=== PATIENT | female | born 1990 | race Caucasian/White ===

== ENCOUNTER 2017-07-12 14:43 | Emergency (ER) | payer OTHER ==
[~2017-07-12] VITALS: Ht 165.1 cm; Wt 72.0 kg
[2017-07-12 14:46] VITALS: BP 146/87
[2017-07-12] MEDS ORDERED: HYDROmorphone 1 MG/ML, 1ML ONE (15:29)
[2017-07-12] MEDS ORDERED: SODIUM CHLORIDE FLUSH 10ML SYR IVF ONE (15:30)
[2017-07-12] MEDS ORDERED: HYDROmorphone 2 MG/ML, 1ML IVPush ONE (15:30)
[2017-07-12] MEDS ORDERED: AMPICILLIN/SULBACTAM 3 GM in SODIUM CHLORIDE 0.9% 100 ML IV ONE (15:30)
[2017-07-12] MEDS ORDERED: ONDANSETRON 2MG/ML, 2ML ONE (15:34)
[2017-07-12] MEDS ORDERED: ONDANSETRON 2MG/ML, 2ML IVPush ONE (16:00)
== END 2017-07-12 17:12 | disposition home or self-care (01) ==
LOC: ED 17:05
DX: S21.151A Open bite of right front wall of thorax without penetration into thoracic cavity, initial encounter (principal); S51.851A Open bite of right forearm, initial encounter; S71.152A Open bite, left thigh, initial encounter; J45.909 Unspecified asthma, uncomplicated; W54.0XXA Bitten by dog, initial encounter; Y93.K1 Activity, walking an animal; Y99.8 Other external cause status; Y92.410 Unspecified street and highway as the place of occurrence of the external cause
CPT/HCPCS: 73090; 96365; 96375; 99284; J0295; J1170; J2405

== ENCOUNTER → 2020-06-11 | Outpatient (CLI) | payer OTHER ==
[~2020-06-11] VITALS: Ht 160 cm; Wt 102.3 kg
[2020-06-11 13:47] VITALS: BP 138/82
[2020-06-11 15:20] LABS: BASOPHILS % (AUTO) 1 % (0-1); EOSINOPHILS % (AUTO) 1 % (1-7); LYMPHOCYTES % (AUTO) 25 % (22-44); MD NO; MEAN CORPUSCULAR HEMOGLOBIN 31.3 pg (27.0-34.8); MEAN CORPUSCULAR HGB CONC 34.3 g/dL (32.4-35.8); MEAN PLATELET VOLUME 7.5 fL (7.4-10.4); MONOCYTES % (AUTO) 7 % (2-9); NEUTROPHILS % (AUTO) 67 % (42-75); PLATELET COUNT 257 x10^3/uL (130-400); RED BLOOD COUNT 4.03 x10^6/uL (3.82-5.3); RED CELL DISTRIBUTION WIDTH 13.7 % (9.6-15.2)
[2020-06-11 15:21] LABS: MICROSCOPIC INDICATED
[2020-06-11 15:25] LABS: ALANINE AMINOTRANSFERASE 14 U/L (12-78); ALBUMIN 2.5 g/dL (3.4-5.0); ANION GAP 8 mmol/L (5-15); CALCIUM 8.3 mg/dL (8.5-10.1); CHLORIDE 108 mmol/L (98-107); CREATININE 0.59 mg/dL (0.55-1.02)
[2020-06-11 15:28] LABS: ALKALINE PHOSPHATASE 102 U/L (45-117); BILIRUBIN,TOTAL 0.2 mg/dL (0.2-1.0); TOTAL PROTEIN 6.5 g/dL (6.4-8.2)
[2020-06-11 15:53] LABS: CREATININE,URINE RANDOM < 13.00 mg/dL; TOTAL PROTEIN,URINE RANDOM < 5 mg/dL (0-12)
== END | disposition home or self-care (01) ==
LOC: LDOP 13:58
PROVIDERS: ATTEND Obstetrics & Gynecology
DX: O26.893 Other specified pregnancy related conditions, third trimester (principal); R51.9 Headache, unspecified; R60.9 Edema, unspecified; Z3A.36 36 weeks gestation of pregnancy
CPT/HCPCS: 36415; 59025; 80053; 81001; 82570; 84156; 84550; 85025; 87086

== ENCOUNTER 2020-06-24 16:18 | Inpatient (IN) | payer OTHER ==
[~2020-06-24] VITALS: Ht 160 cm; Wt 103.2 kg
[2020-06-24 16:57] LABS: BASOPHILS % (AUTO) 1 % (0-1); EOSINOPHILS % (AUTO) 1 % (1-7); LYMPHOCYTES % (AUTO) 24 % (22-44); MEAN CORPUSCULAR HEMOGLOBIN 30.5 pg (27.0-34.8); MEAN CORPUSCULAR HGB CONC 33.7 g/dL (32.4-35.8); MEAN PLATELET VOLUME 7.8 fL (7.4-10.4); MONOCYTES % (AUTO) 7 % (2-9); NEUTROPHILS % (AUTO) 67 % (42-75); PLATELET COUNT 246 x10^3/uL (130-400); RED BLOOD COUNT 4.29 x10^6/uL (3.82-5.3)
[2020-06-24 17:01] LABS: MD NO
[2020-06-24 17:06] LABS: ALANINE AMINOTRANSFERASE 14 U/L (12-78); ALBUMIN 2.5 g/dL (3.4-5.0); ANION GAP 8 mmol/L (5-15); CALCIUM 8.2 mg/dL (8.5-10.1); CHLORIDE 107 mmol/L (98-107)
[2020-06-24 17:08] LABS: BILIRUBIN, DIRECT < 0.1 mg/dL (0.1-0.2)
[2020-06-24 17:09] LABS: ALKALINE PHOSPHATASE 125 U/L (45-117); BILIRUBIN,TOTAL 0.2 mg/dL (0.2-1.0); CREATININE 0.67 mg/dL (0.55-1.02); TOTAL PROTEIN 6.7 g/dL (6.4-8.2)
[2020-06-24 17:15] LABS: MICROSCOPIC INDICATED
[2020-06-24] MEDS: LACTATED RINGERS 1,000 ML IV SCH (17:33)
[2020-06-24] MEDS ORDERED: MISOPROSTOL 25 MCG TABLET ONE ×2 (17:48→22:09)
[2020-06-24] MEDS ORDERED: FENTANYL PF 100 MCG/2ML IV PRN (18:00)
[2020-06-24] MEDS ORDERED: CALCIUM CARBONATE 500 MG TAB.CHEW PO PRN (18:00)
[2020-06-24] MEDS ORDERED: D5%-LACTATED RINGERS 1,000 ML IV SCH (18:00)
[2020-06-24] MEDS ORDERED: TERBUTALINE 1 MG/ML, 1ML SQ PRN (18:00)
[2020-06-24] MEDS ORDERED: OXYTOCIN 30U/ 0.9% NaCL 500ML 500 ML IV ONE (18:00)
[2020-06-24] MEDS ORDERED: TERBUTALINE 1 MG/ML, 1ML IVPush PRN (18:00)
[2020-06-24] MEDS: MISOPROSTOL 25 MCG TABLET VG PRN ×2 (18:02→23:27)
[2020-06-24] MEDS ORDERED: OXYTOCIN 30U/ 0.9% NaCL 500ML 500 ML ONE (18:20)
[2020-06-24] MEDS ORDERED: NEWBORN KIT ONE (18:20)
[2020-06-25] MEDS ORDERED: ALBUTEROL HFA 90 MCG/SPRAY INH PRN
[2020-06-25] MEDS ORDERED: MISOPROSTOL 25 MCG TABLET ONE ×2 (03:31→22:45)
[2020-06-25] MEDS: LACTATED RINGERS 1,000 ML IV SCH (07:02)
[2020-06-25] MEDS ORDERED: ACETAMINOPHEN 325 MG TABLET ONE (08:50)
[2020-06-25] MEDS ORDERED: ONDANSETRON 2MG/ML, 2ML ONE (09:38)
[2020-06-25] MEDS ORDERED: FENTANYL PF 100 MCG/2ML ONE ×4 (09:38→22:29)
[2020-06-25] MEDS: ONDANSETRON 2MG/ML, 2ML IVPush PRN (09:41)
[2020-06-25] MEDS: FENTANYL PF 100 MCG/2ML IVPush PRN ×4 (09:42→22:36)
[2020-06-25] MEDS ORDERED: OXYTOCIN 30U/ 0.9% NaCL 500ML 500 ML ONE (20:31)
[2020-06-25] MEDS ORDERED: OXYTOCIN 30U/ 0.9% NaCL 500ML 500 ML IV PRN (21:00)
[2020-06-25] MEDS: MISOPROSTOL 25 MCG TABLET VG PRN (22:57)
[2020-06-26] MEDS ORDERED: FENTANYL PF 100 MCG/2ML ONE ×3 (03:00→07:43)
[2020-06-26] MEDS: FENTANYL PF 100 MCG/2ML IVPush PRN ×3 (03:04→07:45)
[2020-06-26] MEDS: LACTATED RINGERS 1,000 ML IV SCH ×2 (08:33→11:13)
[2020-06-26] MEDS ORDERED: FENTANYL/BUPIV./NS/PF 250 ML EPIDCONT ONE (09:07)
[2020-06-26] MEDS ORDERED: EPHEDRINE 50 MG/ML, 1ML IVPush PRN (13:00)
[2020-06-26] MEDS ORDERED: LACTATED RINGERS 1,000 ML IVBOLUS PRN (13:00)
[2020-06-26] MEDS ORDERED: NALOXONE 0.4 MG/ML, 1ML IVPush PRN (13:00)
[2020-06-26] MEDS ORDERED: DIPHENHYDRAMINE 50 MG/ML, 1ML IVPush PRN (13:00)
[2020-06-26] MEDS ORDERED: ONDANSETRON 2MG/ML, 2ML IVPush PRN (13:00)
[2020-06-26] MEDS ORDERED: LACTATED RINGERS 1,000 ML IV SCH (13:00)
[2020-06-26] MEDS ORDERED: FENTANYL/BUPIV./NS/PF 250 ML EPIDCONT SCH (13:00)
[2020-06-26] MEDS ORDERED: PREN1TAB60 PO (14:28)
[2020-06-26] MEDS ORDERED: ONDANSETRON 2MG/ML, 2ML ONE (15:53)
[2020-06-26] MEDS: ONDANSETRON 2MG/ML, 2ML IVPush PRN (15:55)
[2020-06-26] MEDS ORDERED: DIPHENHYDRAMINE 50 MG/ML, 1ML IVPush ONE (19:00)
[2020-06-26] MEDS ORDERED: DIPHENHYDRAMINE 50 MG/ML, 1ML ONE (19:11)
[2020-06-26 20:30] VITALS: BP 134/81
[2020-06-26] MEDS ORDERED: SODIUM CITRATE/CITRIC ACID 30 ML UDC PO ONE (23:00)
[2020-06-26] MEDS ORDERED: METOCLOPRAMIDE 5 MG/ML, 2ML IV ONE (23:00)
[2020-06-26] MEDS ORDERED: AZITHROMYCIN 500 MG in SODIUM CHLORIDE 0.9% 250 ML IV ONE (23:00)
[2020-06-26] MEDS ORDERED: SODIUM CITRATE/CITRIC ACID 15 ML UDC ONE (23:01)
[2020-06-26] MEDS ORDERED: METOCLOPRAMIDE 5 MG/ML, 2ML ONE (23:02)
[2020-06-27] MEDS ORDERED: FENTANYL PF 100 MCG/2ML ONE (00:15)
[2020-06-27] MEDS ORDERED: CEFAZOLIN 1,000 MG ONE (00:17)
[2020-06-27] MEDS ORDERED: OXYTOCIN 10 UNITS/ML, 1ML ONE ×3 (00:17)
[2020-06-27] MEDS ORDERED: KETOROLAC 30 MG/1 ML ONE (00:17)
[2020-06-27] MEDS ORDERED: LIDOCAINE/MPF 2%-EPI 1:200K, 20 ML ONE (00:17)
[2020-06-27] MEDS ORDERED: METOCLOPRAMIDE 5 MG/ML, 2ML IV PRN (00:30)
[2020-06-27] MEDS ORDERED: MISOPROSTOL 200 MCG TABLET PR PRN (00:30)
[2020-06-27] MEDS: LACTATED RINGERS 1,000 ML IV SCH ×6 (00:30→20:30)
[2020-06-27] MEDS ORDERED: KETOROLAC 30 MG/1 ML IV SCH (00:30)
[2020-06-27] MEDS ORDERED: GLYCERIN ADULT SUPP PR PRN (00:30)
[2020-06-27] MEDS ORDERED: METHYLERGONOVINE 0.2 MG/ML IM PRN (00:30)
[2020-06-27] MEDS ORDERED: BISACODYL 10 MG SUPP PR PRN (00:30)
[2020-06-27] MEDS: OXYTOCIN 30U/ 0.9% NaCL 500ML 500 ML IV SCH ×3 (00:30→20:30)
[2020-06-27] MEDS ORDERED: MEASLES,MUMPS&RUBELLA VACC/PF 0.5 ML SQ-VACC PRN (00:30)
[2020-06-27] MEDS ORDERED: ONDANSETRON 2MG/ML, 2ML IV PRN (00:30)
[2020-06-27] MEDS ORDERED: ACETAMINOPHEN 325 MG TABLET PO PRN ×2 (00:30)
[2020-06-27] MEDS ORDERED: CARBOPROST TROMETHAMINE 250 MCG/ML, 1ML IM PRN (00:30)
[2020-06-27] MEDS ORDERED: CALCIUM CARBONATE 500 MG TAB.CHEW PO PRN (00:30)
[2020-06-27] MEDS ORDERED: ONDANSETRON 2MG/ML, 2ML ONE (00:50)
[2020-06-27] MEDS ORDERED: METOCLOPRAMIDE 5 MG/ML, 2ML IVPush PRN (02:00)
[2020-06-27] MEDS ORDERED: ONDANSETRON 2MG/ML, 2ML IVPush PRN (02:00)
[2020-06-27] MEDS ORDERED: morphine SULFATE 10 MG/ML, 1ML IVPush PRN (02:00)
[2020-06-27] MEDS ORDERED: MEPERIDINE/PF 25MG/0.5ML IVPush PRN (02:00)
[2020-06-27] MEDS ORDERED: EPHEDRINE 50 MG/ML, 1ML IVPush PRN (02:00)
[2020-06-27] MEDS ORDERED: OXYcodone 5 MG/5 ML ORAL.SOL UDC PO PRN (02:00)
[2020-06-27] MEDS ORDERED: DIPHENHYDRAMINE 50 MG/ML, 1ML IVPush PRN (02:00)
[2020-06-27] MEDS ORDERED: FENTANYL PF 100 MCG/2ML IV PRN (02:00)
[2020-06-27 03:05] VITALS: BP 119/76
[2020-06-27] MEDS: OXYcodone/APAP 5/325MG TABLET PO PRN ×6 (04:20→21:58)
[2020-06-27 07:15] VITALS: BP 124/81
[2020-06-27] MEDS: DOCUSATE 100 MG CAPSULE PO PRN ×2 (07:19→19:29)
[2020-06-27] MEDS: KETOROLAC 30 MG/1 ML IV SCH ×3 (07:19→19:29)
[2020-06-27] MEDS: PRENATAL VIT/IRON/FA 1 EACH TABLET PO SCH (07:19)
[2020-06-27] MEDS: morphine SULFATE 10 MG/ML, 1ML IVPush PRN ×4 (07:56→22:34)
[2020-06-27 10:35] LABS: BASOPHILS % (AUTO) 0 % (0-1); EOSINOPHILS % (AUTO) 0 % (1-7); LYMPHOCYTES % (AUTO) 12 % (22-44); MEAN CORPUSCULAR HEMOGLOBIN 30.1 pg (27.0-34.8); MEAN CORPUSCULAR HGB CONC 33.1 g/dL (32.4-35.8); MEAN PLATELET VOLUME 8.1 fL (7.4-10.4); MONOCYTES % (AUTO) 5 % (2-9); NEUTROPHILS % (AUTO) 82 % (42-75); PLATELET COUNT 206 x10^3/uL (130-400); RED BLOOD COUNT 3.99 x10^6/uL (3.82-5.3); RED CELL DISTRIBUTION WIDTH 14.1 % (9.6-15.2)
[2020-06-27 10:37] LABS: MD NO
[2020-06-27 12:54] VITALS: BP 127/86
[2020-06-27] MEDS: SIMETHICONE 80 MG CHEW TAB PO PRN ×2 (13:33→19:29)
[2020-06-27 16:19] VITALS: BP 121/84
[2020-06-27 19:43] VITALS: BP 128/83
[2020-06-28] VITALS: BP 122/82
[2020-06-28] MEDS: LACTATED RINGERS 1,000 ML IV SCH ×3 (00:30→08:08)
[2020-06-28] MEDS: KETOROLAC 30 MG/1 ML IV SCH ×4 (02:01→19:31)
[2020-06-28] MEDS: OXYcodone/APAP 5/325MG TABLET PO PRN ×6 (02:13→23:32)
[2020-06-28] MEDS: OXYTOCIN 30U/ 0.9% NaCL 500ML 500 ML IV SCH (07:14)
[2020-06-28] MEDS: DOCUSATE 100 MG CAPSULE PO PRN ×2 (07:25→19:32)
[2020-06-28] MEDS: PRENATAL VIT/IRON/FA 1 EACH TABLET PO SCH (07:25)
[2020-06-28] MEDS: SIMETHICONE 80 MG CHEW TAB PO PRN ×2 (07:26→15:26)
[2020-06-28 07:40] VITALS: BP 137/87
[2020-06-28 12:30] VITALS: BP 122/89
[2020-06-28 19:50] VITALS: BP 134/89
[2020-06-29] VITALS (8 sets, daily range): BP systolic 143–165; BP diastolic 83–116
[2020-06-29] MEDS: KETOROLAC 30 MG/1 ML IV SCH (01:34)
[2020-06-29] MEDS: OXYcodone/APAP 5/325MG TABLET PO PRN ×5 (03:39→20:42)
[2020-06-29] MEDS ORDERED: DOCU100C33 PO (06:24)
[2020-06-29] MEDS ORDERED: IBUP-1222 PO (06:24)
[2020-06-29] MEDS ORDERED: OXYC-302 PO (06:24)
[2020-06-29] MEDS: PRENATAL VIT/IRON/FA 1 EACH TABLET PO SCH (08:05)
[2020-06-29] MEDS: DOCUSATE 100 MG CAPSULE PO PRN ×2 (08:05→20:15)
[2020-06-29] MEDS: IBUPROFEN 600 MG TABLET PO PRN ×3 (08:05→20:15)
[2020-06-29] MEDS ORDERED: LABETALOL 100 MG TABLET ONE (08:23)
[2020-06-29] MEDS: LABETALOL 100 MG TABLET PO SCH ×2 (08:41→17:48)
[2020-06-29 09:32] LABS: BASOPHILS % (AUTO) 1 % (0-1); EOSINOPHILS % (AUTO) 3 % (1-7); LYMPHOCYTES % (AUTO) 19 % (22-44); MEAN CORPUSCULAR HEMOGLOBIN 30.9 pg (27.0-34.8); MEAN CORPUSCULAR HGB CONC 33.7 g/dL (32.4-35.8); MEAN PLATELET VOLUME 7.3 fL (7.4-10.4); MONOCYTES % (AUTO) 7 % (2-9); NEUTROPHILS % (AUTO) 71 % (42-75); PLATELET COUNT 238 x10^3/uL (130-400); RED BLOOD COUNT 3.61 x10^6/uL (3.82-5.3); RED CELL DISTRIBUTION WIDTH 13.8 % (9.6-15.2)
[2020-06-29 09:36] LABS: MD NO
[2020-06-29 09:40] LABS: ALBUMIN 1.9 g/dL (3.4-5.0); ANION GAP 7 mmol/L (5-15); CALCIUM 8.5 mg/dL (8.5-10.1); CHLORIDE 106 mmol/L (98-107)
[2020-06-29 09:45] LABS: ALANINE AMINOTRANSFERASE 13 U/L (12-78); ALKALINE PHOSPHATASE 93 U/L (45-117); BILIRUBIN,TOTAL 0.2 mg/dL (0.2-1.0); CREATININE 0.58 mg/dL (0.55-1.02); TOTAL PROTEIN 5.7 g/dL (6.4-8.2)
[2020-06-29 10:04] LABS: TOTAL PROTEIN,URINE RANDOM < 5 mg/dL (0-12)
[2020-06-29] MEDS: SIMETHICONE 80 MG CHEW TAB PO PRN ×2 (12:26→20:15)
[2020-06-29] MEDS ORDERED: LABETALOL 100 MG TABLET PO ONE (18:30)
[2020-06-30 00:03] VITALS: BP 132/87
[2020-06-30] MEDS: OXYcodone/APAP 5/325MG TABLET PO PRN ×4 (00:49→13:58)
[2020-06-30] MEDS: IBUPROFEN 600 MG TABLET PO PRN ×2 (02:24→08:45)
[2020-06-30 05:20] VITALS: BP 147/98
[2020-06-30] MEDS ORDERED: LABETALOL 200 MG TABLET PO SCH (08:00)
[2020-06-30] MEDS: DOCUSATE 100 MG CAPSULE PO PRN (08:45)
[2020-06-30] MEDS: PRENATAL VIT/IRON/FA 1 EACH TABLET PO SCH (08:45)
[2020-06-30 08:46] VITALS: BP 146/102
== END 2020-06-30 14:18 | disposition home or self-care (01) | DRG 788 ==
LOC: LDOP 16:18 → LDIP 17:31 → 2NW 06-27 02:57
PROVIDERS: ADMIT Obstetrics & Gynecology; ATTEND Obstetrics & Gynecology
PROC: 0U7C7ZZ Dilation of Cervix, Via Natural or Artificial Opening (ICD-10-PCS; 2020-06-25)
PROC: 10D00Z1 Extraction of Products of Conception, Low, Open Approach (ICD-10-PCS; principal; 2020-06-27)
DX: O13.4 Gestational [pregnancy-induced] hypertension without significant proteinuria, complicating childbirth (principal); O14.04 Mild to moderate pre-eclampsia, complicating childbirth; O62.0 Primary inadequate contractions; O76 Abnormality in fetal heart rate and rhythm complicating labor and delivery; O99.52 Diseases of the respiratory system complicating childbirth; J45.909 Unspecified asthma, uncomplicated; Z3A.38 38 weeks gestation of pregnancy; Z37.0 Single live birth; Z88.5 Allergy status to narcotic agent; Z23 Encounter for immunization
CPT/HCPCS: 36415; J7121; 80053; 81001; 82248; 82570; 83615; 84156; 84550; 85025; 86850; 86900; 87635; G0378; J0456; J0690; J1885; J2405; J3010; J1200; J2270; J2590; J2765; J7050; J7120

== ENCOUNTER 2020-07-02 18:26 | Inpatient (IN) | payer OTHER ==
[~2020-07-02] VITALS: Ht 160 cm; Wt 102.8 kg
[~2020-07-02 18:26] MED LIST: DOCU100C33 PO; IBUP-1222 PO; OXYC1TAB14 PO; PREN1TAB60 PO
--- NOTE | 2020-07-02 19:09 | NUR ---
M b/p done, urine sent, not placed on monitor per dr chirinos. Will man. re-do b/p for updates.
[2020-07-02 19:10] LABS: BASOPHILS % (AUTO) 1 % (0-1); EOSINOPHILS % (AUTO) 4 % (1-7); LYMPHOCYTES % (AUTO) 25 % (22-44); MD NO; MEAN CORPUSCULAR HEMOGLOBIN 30.6 pg (27.0-34.8); MEAN CORPUSCULAR HGB CONC 33.7 g/dL (32.4-35.8); MEAN PLATELET VOLUME 6.7 fL (7.4-10.4); MONOCYTES % (AUTO) 8 % (2-9); NEUTROPHILS % (AUTO) 63 % (42-75); PLATELET COUNT 318 x10^3/uL (130-400); RED BLOOD COUNT 3.74 x10^6/uL (3.82-5.3); RED CELL DISTRIBUTION WIDTH 14.2 % (9.6-15.2)
[2020-07-02 19:13] LABS: MICROSCOPIC AUTO
[2020-07-02 19:22] LABS: ALANINE AMINOTRANSFERASE 33 U/L (12-78); ALBUMIN 2.3 g/dL (3.4-5.0); ANION GAP 3 mmol/L (5-15); CALCIUM 8.2 mg/dL (8.5-10.1); CHLORIDE 111 mmol/L (98-107); CREATININE 0.57 mg/dL (0.55-1.02)
[2020-07-02 19:26] LABS: ALKALINE PHOSPHATASE 88 U/L (45-117); BILIRUBIN,TOTAL 0.2 mg/dL (0.2-1.0); TOTAL PROTEIN 6.2 g/dL (6.4-8.2)
[2020-07-02] MEDS ORDERED: ENALAPRIL 5MG TABLET PO ONE (20:00)
[2020-07-02 21:02] VITALS: BP 170/92
--- NOTE | 2020-07-02 21:07 | NUR ---
Dr Vu at bedside for re-eval and dispo.
[2020-07-03] MEDS ORDERED: MAGNESIUM SULFATE PMX 4GM/100M 100 ML ONE (11:38)
[2020-07-03] MEDS ORDERED: MAGNESIUM SULF. PMX 20GM/500ML 500 ML IV ONE ×2 (11:39→17:58)
[2020-07-03] MEDS: LACTATED RINGERS 1,000 ML IV SCH ×2 (11:48→19:13)
[2020-07-03] MEDS ORDERED: MAGNESIUM SULFATE PMX 4GM/100M 100 ML IVPB ONE (12:00)
[2020-07-03] MEDS ORDERED: DOCUSATE 100 MG CAPSULE PO PRN (12:00)
[2020-07-03 12:10] LABS: CREATININE,URINE RANDOM 46.9 mg/dL
[2020-07-03 12:23] LABS: BASOPHILS % (AUTO) 1 % (0-1); EOSINOPHILS % (AUTO) 3 % (1-7); LYMPHOCYTES % (AUTO) 24 % (22-44); MEAN CORPUSCULAR HEMOGLOBIN 30.3 pg (27.0-34.8); MEAN CORPUSCULAR HGB CONC 33.3 g/dL (32.4-35.8); MEAN PLATELET VOLUME 6.6 fL (7.4-10.4); MONOCYTES % (AUTO) 7 % (2-9); NEUTROPHILS % (AUTO) 65 % (42-75); PLATELET COUNT 316 x10^3/uL (130-400); RED BLOOD COUNT 3.67 x10^6/uL (3.82-5.3); RED CELL DISTRIBUTION WIDTH 13.9 % (9.6-15.2)
[2020-07-03 12:24] LABS: MD NO
[2020-07-03 12:32] LABS: CHLORIDE 112 mmol/L (98-107)
[2020-07-03 12:47] LABS: ALANINE AMINOTRANSFERASE 31 U/L (12-78); ALBUMIN 2.3 g/dL (3.4-5.0); ALKALINE PHOSPHATASE 87 U/L (45-117); ANION GAP 6 mmol/L (5-15); BILIRUBIN,TOTAL 0.2 mg/dL (0.2-1.0); CALCIUM 7.9 mg/dL (8.5-10.1); CREATININE 0.65 mg/dL (0.55-1.02)
[2020-07-03] MEDS ORDERED: LABE300T2 PO (14:17)
[2020-07-03] MEDS ORDERED: OXYcodone/APAP 5/325MG TABLET ONE ×2 (14:37→20:08)
[2020-07-03] MEDS: OXYcodone/APAP 5/325MG TABLET PO PRN ×2 (14:40→20:10)
[2020-07-03] MEDS ORDERED: niFEDipine ER 30 MG TABLET.ER PO SCH (15:00)
[2020-07-03] MEDS ORDERED: niFEDipine ER 30 MG TABLET.ER ONE (16:49)
[2020-07-03] MEDS ORDERED: IBUPROFEN 600 MG TABLET ONE (16:50)
[2020-07-03] MEDS: LABETALOL 300 MG TABLET PO SCH (16:51)
[2020-07-03] MEDS: IBUPROFEN 200 MG TABLET PO PRN (16:57)
[2020-07-03] MEDS ORDERED: SIMETHICONE 125 MG CHEW TAB ONE (19:06)
[2020-07-03] MEDS ORDERED: PRENATAL VIT/IRON/FA 1 EACH TABLET ONE (19:06)
[2020-07-03] MEDS ORDERED: DOCUSATE 100 MG CAPSULE ONE (19:06)
[2020-07-03] MEDS: SIMETHICONE 125 MG CHEW TAB PO SCH (19:13)
[2020-07-03] MEDS: MAGNESIUM SULF. PMX 20GM/500ML 500 ML IV SCH (19:16)
[2020-07-04] MEDS ORDERED: IBUPROFEN 600 MG TABLET ONE ×3 (00:49→14:08)
[2020-07-04] MEDS: SIMETHICONE 125 MG CHEW TAB PO SCH (00:53)
[2020-07-04] MEDS: LABETALOL 300 MG TABLET PO SCH (00:53)
[2020-07-04] MEDS: IBUPROFEN 200 MG TABLET PO PRN ×2 (00:53→07:57)
[2020-07-04] MEDS ORDERED: MAGNESIUM SULF. PMX 20GM/500ML 500 ML IV ONE (03:08)
[2020-07-04] MEDS: MAGNESIUM SULF. PMX 20GM/500ML 500 ML IV SCH (03:12)
[2020-07-04] MEDS: LACTATED RINGERS 1,000 ML IV SCH (03:12)
[2020-07-04] MEDS ORDERED: OXYcodone/APAP 5/325MG TABLET ONE (05:03)
[2020-07-04] MEDS: OXYcodone/APAP 5/325MG TABLET PO PRN (05:05)
[2020-07-04 06:31] LABS: BASOPHILS % (AUTO) 1 % (0-1); EOSINOPHILS % (AUTO) 4 % (1-7); LYMPHOCYTES % (AUTO) 24 % (22-44); MEAN CORPUSCULAR HEMOGLOBIN 30.9 pg (27.0-34.8); MEAN CORPUSCULAR HGB CONC 33.7 g/dL (32.4-35.8); MEAN PLATELET VOLUME 6.6 fL (7.4-10.4); MONOCYTES % (AUTO) 8 % (2-9); NEUTROPHILS % (AUTO) 62 % (42-75); PLATELET COUNT 334 x10^3/uL (130-400); RED BLOOD COUNT 3.66 x10^6/uL (3.82-5.3); RED CELL DISTRIBUTION WIDTH 13.8 % (9.6-15.2)
[2020-07-04 06:43] LABS: ALANINE AMINOTRANSFERASE 28 U/L (12-78); ALBUMIN 2.4 g/dL (3.4-5.0); ANION GAP 6 mmol/L (5-15); CALCIUM 6.7 mg/dL (8.5-10.1); CHLORIDE 107 mmol/L (98-107); MD NO
[2020-07-04 06:46] LABS: ALKALINE PHOSPHATASE 86 U/L (45-117); BILIRUBIN,TOTAL 0.3 mg/dL (0.2-1.0); CREATININE 0.52 mg/dL (0.55-1.02)
[2020-07-04] MEDS ORDERED: PRENATAL VIT/IRON/FA 1 EACH TABLET ONE (08:45)
[2020-07-04] MEDS ORDERED: DOCUSATE 100 MG CAPSULE ONE (08:46)
[2020-07-04] MEDS ORDERED: PRENATAL VIT/IRON/FA 1 EACH TABLET PO SCH (09:00)
[2020-07-04] MEDS ORDERED: niFEDipine ER 30 MG TABLET.ER ONE (16:54)
[2020-07-04] MEDS ORDERED: NIFE30TA2 PO (17:09)
== END 2020-07-04 18:39 | disposition home or self-care (01) | DRG 776 ==
LOC: ED 21:15 → LDIP 07-03 11:29
PROVIDERS: ADMIT Obstetrics & Gynecology; ATTEND Obstetrics & Gynecology
DX: O14.15 Severe pre-eclampsia, complicating the puerperium (principal); J45.909 Unspecified asthma, uncomplicated; Z20.822 Contact with and (suspected) exposure to COVID-19; O99.53 Diseases of the respiratory system complicating the puerperium; O16.5 Unspecified maternal hypertension, complicating the puerperium; Z88.5 Allergy status to narcotic agent
CPT/HCPCS: 36415; 80053; 81001; 82570; 83735; 83880; 84156; 84550; 85025; 87077; 87086; 87635; 93005; 93970; 96374; 99285; G0378; J3475; J7120

== ENCOUNTER 2020-12-21 11:54 | Emergency (ER) | payer BC, OTHER ==
[~2020-12-21] VITALS: Ht 162.6 cm; Wt 90.4 kg
[~2020-12-21 11:54] MED LIST changes: +LABE300T2 PO; +NIFE30TA2 PO
[2020-12-21 13:10] LABS: BASOPHILS % (AUTO) 1 % (0-1); EOSINOPHILS % (AUTO) 5 % (1-7); LYMPHOCYTES % (AUTO) 35 % (22-44); MEAN CORPUSCULAR HEMOGLOBIN 32.3 pg (27.0-34.8); MEAN CORPUSCULAR HGB CONC 34.4 g/dL (32.4-35.8); MEAN PLATELET VOLUME 7.9 fL (7.4-10.4); MONOCYTES % (AUTO) 8 % (2-9); NEUTROPHILS % (AUTO) 51 % (42-75); PLATELET COUNT 298 x10^3/uL (130-400); RED BLOOD COUNT 4.56 x10^6/uL (3.82-5.3); RED CELL DISTRIBUTION WIDTH 13.5 % (9.6-15.2)
[2020-12-21 13:20] LABS: ALBUMIN 3.5 g/dL (3.4-5.0); CALCIUM 8.4 mg/dL (8.5-10.1); CREATININE 0.74 mg/dL (0.55-1.02)
--- NOTE | 2020-12-21 13:33 | NUR ---
improvement rn: Pt ambulatory to room from lobby at this time.
[2020-12-21 13:38] LABS: ANION GAP 4 mmol/L (5-15); CHLORIDE 106 mmol/L (98-107)
[2020-12-21] MEDS ORDERED: ONDANSETRON 2MG/ML, 2ML ONE (13:44)
[2020-12-21] MEDS ORDERED: MORPHINE SULFATE 4 MG/ML, 1ML ONE ×2 (13:45→15:03)
[2020-12-21 13:46] LABS: MICROSCOPIC NOT IND
[2020-12-21] MEDS: MORPHINE SULFATE 4 MG/ML, 1ML IVPush PRN ×2 (13:58→15:06)
[2020-12-21] MEDS ORDERED: SODIUM CHLORIDE FLUSH 10ML SYR IVF ONE (14:00)
[2020-12-21] MEDS ORDERED: ONDANSETRON 2MG/ML, 2ML IVPush ONE (14:00)
--- NOTE | 2020-12-21 14:22 | NUR ---
Covering primary for break, pt waiting for CT.
--- NOTE | 2020-12-21 15:26 | NUR ---
Pt to imaging via impok.
[2020-12-21] MEDS ORDERED: OMNIPAQUE 350 MG/ML, 100ML BOTTLE ONE (15:47)
[2020-12-21 17:25] VITALS: BP 140/83
== END 2020-12-21 17:39 | disposition home or self-care (01) ==
LOC: ED 17:25
DX: R10.32 Left lower quadrant pain (principal); I10 Essential (primary) hypertension
CPT/HCPCS: 36415; 74177; 76830; 80048; 81003; 82040; 84703; 85025; 96374; 96375; 96376; 99285; J2270; J2405; Q9967